=== PATIENT | male | born 1955 | race Caucasian/White ===

== ENCOUNTER → 2024-01-24 | Outpatient (CLI) | payer BC, MEDICARE, SELFPAY | END | disposition home or self-care (01) | PROVIDERS: PCP Family Medicine; Referring Provider Ophthalmology; Visit Provider Ophthalmology | DX: H53.2 Diplopia (principal) | CPT/HCPCS: 36415 ==

== ENCOUNTER → 2024-02-14 | Outpatient (CLI) | payer MEDICARE, BC, SELFPAY ==
--- NOTE | 2024-02-14 11:54 | RAD_ITS ---
STUDY: X-RAY - LEFT ELBOW REASON FOR EXAM: Male, 68 years old. Posterior elbow swelling. TECHNIQUE: 4 view(s) of the elbow. COMPARISON: None. FINDINGS: Normal visualized humerus, radius and ulna. Normal radiocapitellar and ulnotrochlear articulations. Diffuse soft tissue swelling along the posterior and ventral aspect of the olecranon. No radiopaque foreign body is seen. RAD/Elbow min 3 Views IMPRESSION: Soft tissue swelling as described. Electronically Signed: John Vallejo MD at 13:23 EDT ,
== END | disposition home or self-care (01) ==
LOC: MTRAD 11:44
PROVIDERS: PCP Family Medicine; Referring Provider Physician Assistant; Visit Provider Physician Assistant
DX: M70.22 Olecranon bursitis, left elbow (principal)
CPT/HCPCS: 73080

== ENCOUNTER → 2024-06-21 | Outpatient (CLI) | payer MEDICARE, BC, SELFPAY ==
--- NOTE | 2024-06-21 07:27 | RAD_ITS ---
STUDY: X-RAY - ESOPHAGUS (BARIUM SWALLOW) WITH FLUOROSCOPY REASON FOR EXAM: Male, 68 years old. Dysphagia, pharyngoesophageal phase -- evaluate for Zenker''s diverticulum TECHNIQUE: 36 fluoroscopic view(s) of the esophagus were obtained following swallowing of barium. FLUOROSCOPY TIME (if supplied): (41 seconds) minutes/seconds. 4.9 mGy. COMPARISON: None. FINDINGS: There is no demonstrated esophageal foreign body. There is evidence of a 2.8 cm x 3.2 cm Zenker''s diverticulum of the proximal esophagus. Normal gastroesophageal junction, without a demonstrated hiatal hernia. The patient ingested a 12 mm tablet of barium. The tablet is trapped within the Zenker''s diverticulum. Normal visualized aortic arch and descending thoracic aorta. Calcified mediastinal lymph nodes. There are diffuse degenerative changes of the visualized thoracic spine. RAD/Esophagus Dual Contrast IMPRESSION: 2.8 cm x 3.2 cm Zenker''s diverticulum of the proximal esophagus. The ingested 12 mm tablet of barium is trapped within the diverticulum. Electronically Signed: John Vallejo MD at 10:50 EST ,
== END | disposition home or self-care (01) ==
LOC: RAD 07:27
PROVIDERS: PCP Family Medicine; Referring Provider Otolaryngology; Visit Provider Otolaryngology
DX: R13.10 Dysphagia, unspecified (principal); R49.0 Dysphonia
CPT/HCPCS: 74221

== ENCOUNTER → 2024-08-31 | Outpatient (CLI) | payer MEDICARE, BC, SELFPAY ==
--- NOTE | 2024-08-31 | LES_PTH ---
PATIENT: KUNAL WYATT LOC: [facility] U#:[id number] AGE/SX: 68/M ROOM: RE08/31/[address]: Dr. Aniceto Salvador MD : 1955 BED: DIS: 08/31/2024 SPEC #: [id number] RECD: 08/31/24 15:16 STATUS: DWIGHT NOELLE #: [id number] EMMANUEL: 08/31/24 00:[address]: Aniceto Salvador DEPT: SURGICAL PATHOLOGY RECD BY: Trey Hogan ENTERED: 09/03/24 08:49 SP TYPE: Lesion OTHR DR: No Primary Care Phys Tissues: A - Skin of external ear, NOS B - Skin of hand and finger, NOS Procedures: Surgery Specimen Level IV HEADER OPERATION: Biopsy of left ear lesion / biopsy of left dorsal hand lesion PRE-OP DIAGNOSIS: Left ear lesion, left dorsal hand lesion TISSUE SUBMITTED: A- Left ear lesion, B- Left dorsal hand lesion MICROSCOPIC DIAGNOSIS A. Skin, left ear, lesion, shave biopsy: * Superficial portion of a verrucous hyperkeratotic lesion with central neutrophil crust - see Comment. B. Skin, left dorsal hand, shave biopsy: * Actinic keratosis. COMMENT: A) The base of the lesion is not observed in this superficial shaved specimen. Additional pathology cannot be ruled out. Complete excision of any persistent or recurrent lesion at this site is recommended, if clinically indicated. MICROSCOPIC DESCRIPTION Slides are reviewed. GROSS DESCRIPTION A. Received in fixative is one container labeled with the patient's name and designated Left ear lesion. The specimen consists of a shave biopsy of red-meredith granular skin that measures 0.4 x 0.3 x 0.1cm. The margins are inked black. The specimen submitted intact. B. Received in fixative is one container labeled with the patient's name and designated Left dorsal hand lesion. The specimen consists of a shave biopsy of meredith-ortiz- red-meredith and slightly ragged skin that measures 0.4 x 0.3 x 0.2cm. Margin is inked black and the specimen is bisected. The entire specimen is submitted in one cassette. 09/03/2024 TC: CPT:65592n4
== END | disposition home or self-care (01) ==
LOC: LABSPEC 15:38
PROVIDERS: Referring Provider Surgery Plastic and Reconstructive Surgery; Visit Provider Surgery Plastic and Reconstructive Surgery
DX: L57.0 Actinic keratosis (principal)
CPT/HCPCS: 88305

== ENCOUNTER → 2024-12-04 | Outpatient (CLI) | payer MEDICARE, BC, SELFPAY ==
--- NOTE | 2024-12-04 16:57 | RAD_ITS ---
PROCEDURE: CHEST PA AND LATERAL 12/04/2024 REASON FOR EXAM: COUIGH CHRONIC AND ZENKERS TECHNIQUE: Frontal and lateral views of the chest. COMPARISON: None FINDINGS: No focal consolidations. No pleural effusion or pneumothorax. Cardiac silhouette is within normal limits. No acute fractures. RAD/Chest PA and Lateral IMPRESSION: No focal consolidations. Reading Location: [id number]
== END | disposition home or self-care (01) ==
LOC: MTRAD 16:57
PROVIDERS: PCP Family Medicine
DX: R05.9 Cough, unspecified (principal)
CPT/HCPCS: 71046